=== PATIENT | male | born 1955 | race Caucasian/White ===

== ENCOUNTER → 2018-06-23 | Outpatient (CLI) | payer OTHER, MEDICARE | LOC: BHCLAF 09:30 | PROVIDERS: ATTEND Internal Medicine Cardiovascular Disease | DX: I73.9 Peripheral vascular disease, unspecified (principal); E78.5 Hyperlipidemia, unspecified | CPT/HCPCS: 93005-PO ==

== ENCOUNTER → 2018-07-02 | Outpatient (CLI) | payer OTHER, MEDICARE ==
[~2018-07-02] MED LIST: IOPAMIDOL (ISOVUE 370) 100 ML BTL IV ONE
== END ==
LOC: FIMAGING 12:53
PROVIDERS: ATTEND Internal Medicine Cardiovascular Disease
DX: I73.9 Peripheral vascular disease, unspecified (principal); E78.5 Hyperlipidemia, unspecified
CPT/HCPCS: 75635; 93922; Q9967

== ENCOUNTER → 2018-08-05 | Outpatient (CLI) | payer OTHER, MEDICARE | LOC: BHFA 09:30 | PROVIDERS: ATTEND Internal Medicine Cardiovascular Disease | DX: Z01.818 Encounter for other preprocedural examination (principal) | CPT/HCPCS: 78452; 93017; A9500; J2785 ==

== ENCOUNTER → 2018-08-17 | Outpatient (CLI) | payer OTHER, MEDICARE | LOC: BHLMT 09:15 | PROVIDERS: ATTEND Internal Medicine Interventional Cardiology | DX: R94.31 Abnormal electrocardiogram [ECG] [EKG] (principal); I73.9 Peripheral vascular disease, unspecified | CPT/HCPCS: 93306-PO ==

== ENCOUNTER 2018-11-30 06:34 | Inpatient (IN) | payer OTHER, MEDICARE ==
[2018-11-30] MEDS ORDERED: PROTAMINE SULFATE 50 MG/5 ML VIAL IVP ONE ×2 (07:00→11:05)
[2018-11-30] MEDS ORDERED: THROMBIN (BOVINE) 20,000 UNIT SPRAY TP ONE (07:00)
[2018-11-30] MEDS ORDERED: BUPIVACAINE 0.5% 30 ML SDV ONE (07:01)
--- NOTE | 2018-11-30 07:22 | PDANEPAE ---
ANE Past Medical History - Cardiovascular History Hx Hypertension: No Hx Arrhythmias: No Hx Chest Pain: No Hx Coronary Artery / Peripheral Vascular Disease: Yes Hx CHF / Valvular Disease: No Hx Palpitations: No Cardiovascular History Comment: hyperlipidemia. followed by [facility] - Pulmonary History Hx COPD: No Hx Asthma/Reactive Airway Disease: No Hx Recent Upper Respiratory Infection: No Hx Oxygen in Use at Home: No Hx Sleep Apnea: No Sleep Apnea Screening Result - Last Documented: Negative - Neurologic History Hx Cerebrovascular Accident: Yes Hx Seizures: No Hx Dementia: No Neurologic History Comment: TIA 3-4 yrs ago - Endocrine History Hx Diabetes: No Hypothyroid: No Hyperthyroid: No Obesity: no Endocrine History Comment: BPH - Renal History Hx Renal Disorders: No - Liver History Hx Hepatic Disorders: No - Neurological & Psychiatric Hx Hx Neurological and Psychiatric Disorders: No - Cancer History Hx Cancer: No - Congenital Disorder History Hx Congenital Disorders: No - GI History GERD: no Hx Gastrointestinal Disorders: No - Other Health History Other Health History: arms bruise easily d/t blood thinners - Chronic Pain History Chronic Pain: No - Surgical History Prior Surgeries: iliac stent placement 2008 chari. angioplasty in 2012. T&A ANE Review of Systems Review of Systems: - Exercise capacity Exercise capacity: limited by disability METS (RN): 4 METS ANE Patient History - Allergies Allergies/Adverse Reactions: shellfish derived Allergy (Verified 11/25/18 11:08) Anaphylaxis - Home Medications Home Medications: Aspirin [Aspirin 81mg (*)] 81 mg PO HS 11/19/18 [Last Taken 2 Weeks Ago ~] Atorvastatin Calcium [Lipitor 40 mg (*)] 80 mg PO HS 11/19/18 [Last Taken ] Clopidogrel Bisulfate [Plavix (*)] 75 mg PO DAILY 11/19/18 [Last Taken 11/26/18] - Anes Hx Anes Hx: no prior problems - Smoking Hx Smoking Status: Current some day smoker - Alcohol Use Alcohol Use: Occasionally - Family Anes Hx Family Anes Hx: neg - N/A Family Hx Anesthesia Complications: none ANE Labs/Vital Signs - Vital Signs Height: 172.72 cm Weight: 72.575 kg ANE Physical Exam - Airway Neck exam: FROM Mallampati Score: Class 2 Mouth exam: normal dental/mouth exam - Pulmonary Pulmonary: no respiratory distress, no rales or rhonchi, clear to auscultation - Cardiovascular Cardiovascular: regular rate and rhythym, no murmur, rub, or gallop ANE Anesthesia Plan Anesthesia Plan: general endotracheal anesthesia Lines/Monitors: arterial line Total IV Anesthesia: No
[2018-11-30] MEDS ORDERED: ceFAZolin 2 GM/DEXTROSE 100 ML IV ONE (07:32)
[2018-11-30] MEDS ORDERED: LR 1,000 ML IV ONE (07:33)
[2018-11-30] MEDS ORDERED: LIDOCAINE 1% 2 ML INJ ID PRN (07:33)
[2018-11-30] MEDS ORDERED: MIDAZOLAM 2 MG/2 ML VIAL ONE (07:45)
[2018-11-30] MEDS ORDERED: MIDAZOLAM 2 MG/2 ML VIAL IVP ONE (07:52)
--- NOTE | 2018-11-30 07:55 | PDHPUP ---
History & Physical Update H&P update statement: This history and physical update is based on an assessment of the patient which was completed after admission or registration (within 24 hours), but prior to the surgery/procedure. H&P update: H&P reviewed & patient examined, no change in patient's condition since H&P completed
[2018-11-30] MEDS ORDERED: fentaNYL 100 MCG/2 ML INJ ONE ×2 (08:00→12:26)
[2018-11-30] MEDS ORDERED: PROPOFOL/EMULSION 500 MG/50 ML BOTTLE IV ONE (08:00)
[2018-11-30] MEDS ORDERED: REMIFENTANIL HCL 1 MG VIAL ONE (08:00)
[2018-11-30] MEDS ORDERED: ONDANSETRON 4 MG/2 ML VIAL ONE (08:01)
[2018-11-30] MEDS ORDERED: ROCURONIUM 50 MG/5 ML VIAL ONE ×2 (08:01→11:09)
[2018-11-30] MEDS ORDERED: LIDOCAINE 2% 5 ML SDV ONE (08:01)
[2018-11-30 08:19] LABS: INR 0.86 (0.83-1.16); PROTIME(PATIENT) 11.9 SEC (12.0-15.0)
[2018-11-30] MEDS ORDERED: PROPOFOL 200 MG/20 ML VIAL ONE (08:20)
[2018-11-30] MEDS ORDERED: PHENYLEPHRINE HCL 100 MCG/ML SYR ONE (08:22)
[2018-11-30] MEDS ORDERED: HEPARIN 10,000 UNIT/10 ML MDV (1,000 UNIT/ML) ONE (08:53)
[2018-11-30] MEDS ORDERED: PHENYLEPHRINE 10 MG/ML SDV ONE (09:02)
[2018-11-30] MEDS ORDERED: ePHEDrine SULFATE 25 MG/5 ML SYR ONE (09:10)
[2018-11-30] MEDS ORDERED: DEXAMETHASONE 4 MG/ML VIAL ONE (09:19)
[2018-11-30] MEDS ORDERED: oxyCODONE IR 5 MG TAB PO PRN (11:18)
[2018-11-30] MEDS ORDERED: LR 500 ML IV PRN (11:18)
[2018-11-30] MEDS ORDERED: PHENYLEPHRINE HCL 100 MCG/ML SYR IVP PRN (11:18)
[2018-11-30] MEDS ORDERED: PROMETHAZINE HCL 25 MG/ML INJ IVP PRN (11:18)
[2018-11-30] MEDS ORDERED: NALOXONE HCL 0.4 MG/ML INJ IVP PRN (11:18)
[2018-11-30] MEDS ORDERED: ACETAMINOPHEN 500 MG TAB PO PRN (11:18)
[2018-11-30] MEDS ORDERED: ONDANSETRON 4 MG/2 ML VIAL IVP PRN ×2 (11:18→12:17)
[2018-11-30] MEDS ORDERED: HYDROCODONE/APAP 5/325 TAB PO PRN (11:18)
[2018-11-30] MEDS ORDERED: SUGAMMADEX SODIUM 200 MG/2 ML VIAL IVP ONE (11:25)
[2018-11-30] MEDS ORDERED: OXYCODONE/APAP 5/325 TAB PO PRN (12:17)
[2018-11-30] MEDS ORDERED: HYDROmorphONE/DILAUDID 1 MG/ML INJ IVP PRN (12:17)
--- NOTE | 2018-11-30 12:23 | POSTOPPROG ---
Post Op Note Date of Operation: 11/30/18 Surgeon: Humphrey Sanches Parking Lot Manager: April Gaming Anesthesiologist: Gilson Aponte Anesthesia: GET(General Endotracheal) Pre-op Diagnosis: PAD c limiting claudication, RIH Post-op Diagnosis: same, with left femoral hernia Procedure: L above knee fempop a. bypass c impra graft, lap BIH repairs c mesh Findings: good L pedal pulses postop. Large direct RIH, small L femoral hernia Inf/Abcess present in the surg proc area at time of surgery?: No EBL: 50-100 Complications: none Specimen(s): none
[2018-11-30] MEDS: fentaNYL 100 MCG/2 ML INJ IVP PRN ×2 (12:28→12:35)
--- NOTE | 2018-11-30 12:48 | POSTANESTH ---
Post Anesthetic Evaluation Cardiovascular Status: Similar to Pre-Op Cond Respiratory Status: Similar to Pre-op Cond. Level of Consciousness/Mental Status: Can Participate in Eval Pain Control: Adequate, Prn Tx Ordered Nausea/Vomiting Control: Adequate, Prn Tx Ordered Complications Possibly Related to Anesthesia: None Noted
--- NOTE | 2018-11-30 14:12 | PDMN ---
Medical Necessity Medical necessity: [facility] IP only surgery; cpt 63300 Fem-Pop Bypass
[2018-11-30 15:12] LABS: PLATELET COUNT 353 10^3/uL (150-400)
[2018-11-30] MEDS: ASPIRIN 81 MG CHEWABLE TAB PO SCH (20:24)
[2018-11-30] MEDS: DOCUSATE SODIUM 100 MG CAP PO SCH (20:24)
[2018-12-01] MEDS: ACETAMINOPHEN 325 MG TAB PO PRN ×3 (06:53→18:45)
[2018-12-01] MEDS: DOCUSATE SODIUM 100 MG CAP PO SCH ×2 (08:59→20:19)
[2018-12-01] MEDS: CLOPIDOGREL BISULFATE 75 MG TAB PO SCH (08:59)
[2018-12-01] MEDS ORDERED: ENOXAPARIN 40 MG/0.4 ML SYR SC SCH (09:00)
[2018-12-01] MEDS ORDERED: guaiFENesin/CODEINE PHOS 10 ML UDCUP PO PRN (09:39)
--- NOTE | 2018-12-01 09:49 | SOAPPROG ---
SOAP Progress Note Assessment/Plan: Assessment/Plan: 63 Y M s/p L fem pop bypass and lap R inguinal and L femoral hernia repairs. POD#1. Doing well. Palpable pedal pulses. Incisions cdi. Pain controlled--using tylenol. Cough. Recently quit smoking. Added karlasin AC. D/w anesthesia who thinks this is fine even with his pain narcotics ordered. Don d/c'ed. Void trial underway. Regular diet. Ok to restart plavix and ASA. Will hold off on other chemical VTE ppx for now. OOB. PT/OT today. No severe bending at hip or knee. Dispo: medsurg. S: very little pain. O: alert, nad mmm ctab rrr abd soft wounds well dressed, no shadowing. L foot is warm, palpable PT and DP pulses. 12/01/18 09:43 Objective: Vital Signs Temp Pulse Resp BP Pulse Ox 37.1 C 85 19 133/57 H 97 12/01/18 07:00 12/01/18 09:00 12/01/18 09:00 12/01/18 09:00 12/01/18 09:00 Laboratory Results 12/01/18 04:45 12/01/18 04:45 11/30/18 12/01/18 12/02/18 05:59 05:59 05:59 Intake Total 2735 Output Total 2125 Balance 610 PT 11.9 SEC (12.0-15.0) L 11/30/18 07:55 INR 0.86 (0.83-1.16) 11/30/18 07:55 ICD10 Worksheet Patient Problems: Problems Problem Status Onset PAD (peripheral artery disease) Acute - ICD10 Problem Qualifiers (1) PAD (peripheral artery disease)
--- NOTE | 2018-12-01 12:16 | GOP ---
[f rep st] OPERATIVE REPORT DATE OF OPERATION: 11/30/2018 SURGEON: Humphrey Sanches MD PREOPERATIVE DIAGNOSIS: Inability to place Don catheter for surgery. POSTOPERATIVE DIAGNOSIS: Meatal stenosis. PROCEDURE PERFORMED: Complicated Don catheter insertion. FINDINGS: MEATAL STENOSIS AND CLEAR URINE DESCRIPTION OF PROCEDURE: The patient was under general anesthesia by Dr. Aponte. He was prepped and draped in usual sterile fashion. The meatus was slightly dilated with a mosquito hemostat until a 10-Chinese Don catheter could be introduced. It was well lubricated and passed into the bladder and urine return was confirmed. The balloon was blown up 5 cc. Appeared to function well. The catheter was connected to a drainage collection bag. /[id number]/MODL MTDD
--- NOTE | 2018-12-01 12:21 | GOP ---
[f rep st] OPERATIVE REPORT DATE OF OPERATION: 11/30/2018 SURGEON: Humphrey Sanches MD EXECUTIVE CONSULTANT: EMMA Jaffe ANESTHESIOLOGIST: Dr. Aponte PREOPERATIVE DIAGNOSIS: Left leg claudication with superficial femoral occlusion. POSTOPERATIVE DIAGNOSIS: Left leg claudication with superficial femoral occlusion. PROCEDURE PERFORMED: Left femoral-popliteal bypass. FINDINGS: Patient was found to have a patent popliteal artery, but did have significant plaquing in the wall. He had palpable pulses after the procedure. ESTIMATED BLOOD LOSS: Negligible. DESCRIPTION OF PROCEDURE: Patient was taken to the operating room where he received a satisfactory g eneral endotracheal anesthesia by Dr. Aponte. He was placed in the supine position, prepped and draped in the usual sterile fashion. Incision was made in the groin and dissection extended down through the subcutaneous tissue and super ficial fascia. The superficial femoral artery, common femoral artery, and profunda femoris arteries were dissected free and controlled with vessel loops. Dissection extended up to the inguinal ligamen t. Some side branches were also controlled with silk loops. A second incision was then made just ab ove the knee at James's canal. Dissection extended down through the subcutaneous tissue and through the superficial fascia, and James's canal was entered. The distal SFA was dissected free and contr olled with vessel loops. Dissection extended down to the proximal popliteal. The vessel had disease throughout, but there was a soft, open segment distal to the occlusion of the distal SFA. The patient was systemically hepari nized, and after adequate circulation time, an arteriotomy was made in the popliteal artery. An 7-6 graduated Zpga-Iyx-rojqy was selected and a distal anastomosis was made end-to-side with a running mashield 7 suture was some backflow from the vessels. The suture line appeared to be hemostatic. It should be noted the patient had been systemically heparinized. The graft was then tunneled in a sub sartorial tunnel to the groin incision, where it was appropriately trimmed, and then, an end-to-side anastomosis was made to the common femoral artery using Hemashield 6 running suture. All vessels wer e flushed prior to completion of the anastomosis. Flow was first established through the primary SFA , and then through the profunda, and then finally through the graft. There was good flow in the nhi t in the distal popliteal artery, and eventually, there were excellent pedal pulses. Wounds were irrigated. Hemostasis was assured. Heparin was reversed with protamine, and the wounds were closed in layers using 2-0 Vicryl for the fascia, 3-0 Vicryl for the subcu, and skin luis e for the skin. Both wounds were infiltrated with 0.5% Marcaine. He tolerated the procedure well. COMPLICATIONS: There were no complications. /[id number]/MODL
--- NOTE | 2018-12-01 13:11 | GOP ---
[f rep st] OPERATIVE REPORT DATE OF OPERATION: 11/30/2018 SURGEON: Humphrey Sanches MD PREOPERATIVE DIAGNOSIS: Right inguinal hernia. POSTOPERATIVE DIAGNOSIS: Bilateral inguinal hernias. PROCEDURE PERFORMED: Laparoscopic bilateral inguinal hernia repairs. FINDINGS: The patient was found to have a large direct right defect, which was reducible. He had a smaller left femoral defect, which was reducible. DESCRIPTION OF PROCEDURE: Patient taken to the operating room where he received a satisfactory gener al endotracheal anesthesia by Dr. Aponte, placed in the supine position, prepped and draped in u sual sterile fashion. An infraumbilical incision was made. Dissection was carried down the rectus s jace, which was incised. Subfascial tunnel was dissected with a balloon dissector, which was placed with CO2 insufflation trocar. 2 other trocars placed in midline under direct vision. Scott ligame nt was exposed bilaterally. The cords were mobilized up bilaterally. Peritoneum was dissected off t he cord structures. There were no indirect sacs. On the right, a large direct defect was freed up, its contents reduced, and a Covidien polyester mesh patch was placed over the inguinal canal, anchore d in place with AbsorbaTack, securing it to Scott ligament, to the lacunar ligament, anterior abdomi nal wall, and the lateral abdominal wall outside the internal ring. Hemostasis was assured. Attention was turned to the left side where the enlarged femoral canal contained some herniating fat tissue, which was reduced. Covidien polyester mesh patch was introduced on that side as well and anc hored in a similar manner. Hemostasis was assured. Trocars removed under direct vision. Pneumoprep eritoneum was released. Trocar sites were closed with 0 Vicryl for the fascia, 4-0 Monocryl subcutic ular stitch for the skin. All layers infiltrated with 0.5% Marcaine. Blood loss was negligible. No complications. Taken to recovery room in good condition. /[id number]/MODL
[2018-12-01] MEDS: ASPIRIN 81 MG CHEWABLE TAB PO SCH (20:19)
[2018-12-02 08:52] VITALS: BP 125/63
[2018-12-02] MEDS: DOCUSATE SODIUM 100 MG CAP PO SCH (08:54)
[2018-12-02] MEDS: CLOPIDOGREL BISULFATE 75 MG TAB PO SCH (08:54)
[2018-12-02] MEDS: ACETAMINOPHEN 325 MG TAB PO PRN (08:56)
== END 2018-12-02 11:19 | disposition home or self-care (01) | DRG 254 ==
LOC: F3E 06:34 → F2N 11:00
PROVIDERS: ADMIT Surgery; ATTEND Surgery
DX: I73.9 Peripheral vascular disease, unspecified (principal); K40.90 Unilateral inguinal hernia, without obstruction or gangrene, not specified as recurrent; N35.911 Unspecified urethral stricture, male, meatal; E78.5 Hyperlipidemia, unspecified; N40.0 Benign prostatic hyperplasia without lower urinary tract symptoms; Z72.0 Tobacco use; Z86.73 Personal history of transient ischemic attack (TIA), and cerebral infarction without residual deficits
CPT/HCPCS: 97116-GP; 97161-GP; 97165-GO; 97530-GP; 97535-GO; C1727; C1768; C1781; J0690; J1100; J1644; J2250; J2370; J2405; J2704; J2720; J3010

== ENCOUNTER 2019-03-23 18:30 | Inpatient (IN) | payer OTHER, MEDICARE | END 2019-03-27 11:07 | disposition home or self-care (01) | LOC: F2N 23:43 ==